=== PATIENT | female | born 1970 | race Hispanic/Latino ===

== ENCOUNTER 2022-03-03 06:34 | Outpatient (CLI) | payer BC ==
[2022-03-03] MEDS ORDERED: BENZOCAINE 20% TOP SPRAY 0.5 ML UNIT DOSE MM NR (07:00)
[2022-03-03 07:28] LABS: Basophils # (Auto) 0.1 K/mm3 (0.0-0.1); Basophils % (Auto) 0.9 % (0.0-1.8); Eosinophils # (Auto) 0.3 K/mm3 (0.0-0.4); Eosinophils % (Auto) 3.7 % (0.0-4.3); Hematocrit 40.4 % (30.3-42.9); Hemoglobin 12.9 gm/dl (10.1-14.3); Lymphocytes # (Auto) 1.2 K/mm3 (1.2-5.4); Lymphocytes % (Auto) 15.1 % (13.4-35.0); Mean Corpuscular HGB Conc 32 % (30-34); Mean Corpuscular Volume 93 fl (79-97); Monocytes # (Auto) 0.5 K/mm3 (0.0-0.8); Platelet Count 390 K/mm3 (140-440); Red Blood Count 4.36 M/mm3 (3.65-5.03); Red Cell Distribution Width 14.8 % (13.2-15.2)
[2022-03-03 07:36] LABS: INR 0.88 (0.87-1.13)
[2022-03-03 07:37] LABS: Partial Thromboplastin Time 32.4 Sec. (24.2-36.6)
--- NOTE | 2022-03-03 07:37 | Anesthesia Consultation ---
Anesthesia Consult and Med Hx Date of service: 03/03/22 - Airway Anesthetic Teeth Evaluation: Good ROM Head & Neck: Adequate Mental/Hyoid Distance: Adequate Mallampati Class: Class II Intubation Access Assessment: Probably Good - Pre-Operative Health Status ASA Pre-Surgery Classification: ASA3 Proposed Anesthetic Plan: MAC - Pulmonary Hx Asthma: Yes (uses inhaler on the daily basis) - Cardiovascular System Hx Hypertension: Yes - Central Nervous System Hx Back Pain: Yes - Endocrine Hx Renal Disease: Yes (kidney infarction) Hx Non-Insulin Dependent Diabetes: No (takes metformin for PCOD)
--- NOTE | 2022-03-03 07:38 | Anesthesia Day of Surgery ---
Anesthesia Day of Surgery - Day of Surgery Patient Examined: Yes Patient H&P Reviewed: Yes Patient is NPO: Yes Beta Blockers: Yes (took metoprolol last night)
[2022-03-03 07:41] LABS: Blood Urea Nitrogen 13 mg/dL (7-17); Hemolysis Index 4
[2022-03-03] MEDS ORDERED: propofoL 200 MG/20 ML VIAL IV ONE ×2 (07:41)
[2022-03-03 07:44] LABS: BUN/Creatinine Ratio 19
[2022-03-03] MEDS ORDERED: SODIUM CHLORIDE 0.9% 1000 ML 1,000 ML IV SCH (08:00)
--- NOTE | 2022-03-03 10:12 | Short Stay Summary ---
Short Stay Documentation Date of service: 03/03/22 - History H&P: obtained from office - Allergies and Medications Current Medications: Allergies amoxicillin [From Augmentin] Allergy (Verified 02/26/22 16:01) Vomiting clavulanic acid [From Augmentin] Allergy (Verified 02/26/22 16:01) Vomiting Sulfa (Sulfonamide Antibiotics) Allergy (Verified 02/26/22 16:01) Anaphylaxis Active Medications Benzocaine (Benzocaine 20% [place] 0.5 Ml Unit Dose) 3 spray MM PREOP NR Stop: 03/03/22 10:00 Last Admin: 03/03/22 08:44 Dose: 3 spray Sodium Chloride (Nacl 0.9% 1000 Ml) 1,000 mls @ 42 mls/hr IV DIRECT GABBIE Last Admin: 03/03/22 08:14 Dose: 42 mls/hr - Brief post op/procedure progress note Date of procedure: 03/03/22 Estimated blood loss: none - Hospital course Hospital course: Patient presents today for CRISTO. Patient tolerated procedure well and to be discharged home follow-up with primary exhibits manager - Disposition Condition at discharge: Good - Discharge Diagnoses (1) PAF (paroxysmal atrial fibrillation) Status: Acute (2) HTN (hypertension) Status: Acute Short Stay Discharge Plan Activity: advance as tolerated Diet: low fat, low cholesterol, low salt Follow up with: SALVADOR WHITFIELD MD [Primary Care Provider] - 7 Days QUOC BONE MD [Staff Physician] - 03/07/22 9:45 am (Patient has a follow-up appointment on 03/07/2022 at 9:45 AM at our [place] location) Forms: CRISTO Discharge Form
[2022-03-03 11:24] VITALS: BP 140/82
--- NOTE | 2022-03-04 08:28 | Electrocardiograph Report ---
[facility] Test Date: 2022-03-03 Test Time: 07:41:49 Pat Name: BRYN ONEILL Department: Room: Gender: F Rug Inspector: TRISH : 1970 Requested By: ZOILA FERRARA Order Number: [id number] Reading MD: Zoila Ferrara Measurements Intervals [place] Rate: 61 P: 49 UT: 142 QRS: 1 QRSD: 85 T: 20 QT: 419 QTc: 422 Interpretive Statements Sinus rhythm Supraventricular bigeminy No previous ECG available for comparison Electronically Signed On 03-04-2022 8:28:15 EDT by Zoila Ferrara
== END 2022-03-03 11:45 | disposition home or self-care (01) ==
LOC: CATHLABREC 06:34
PROVIDERS: ATTEND Internal Medicine
DX: R00.0 Tachycardia, unspecified (principal); J45.998 Other asthma; N28.0 Ischemia and infarction of kidney; I48.0 Paroxysmal atrial fibrillation; I10 Essential (primary) hypertension; E11.9 Type 2 diabetes mellitus without complications; Z82.5 Family history of asthma and other chronic lower respiratory diseases; Z79.899 Other long term (current) drug therapy; Z88.2 Allergy status to sulfonamides; Z88.8 Allergy status to other drugs, medicaments and biological substances; Z79.84 Long term (current) use of oral hypoglycemic drugs; Z90.49 Acquired absence of other specified parts of digestive tract; Z98.890 Other specified postprocedural states; Z82.49 Family history of ischemic heart disease and other diseases of the circulatory system
CPT/HCPCS: 36415; 80048; 85025; 85610; 85730; 93005; 93312; 93320; 93325; J2704; J7030; U0003

== ENCOUNTER 2022-03-28 06:39 | Day surgery (SDC) | payer BC ==
[~2022-03-28 06:39] MED LIST: SODIUM CHLORIDE 0.9% 750 ML ONE
[2022-03-28 07:16] LABS: Basophils % (Auto) 0.5 % (0.0-1.8); Eosinophils # (Auto) 0.3 K/mm3 (0.0-0.4); Hematocrit 38.1 % (30.3-42.9); Lymphocytes # (Auto) 2.1 K/mm3 (1.2-5.4); Lymphocytes % (Auto) 23.9 % (13.4-35.0); Mean Corpuscular HGB Conc 34 % (30-34); Mean Corpuscular Volume 90 fl (79-97); Monocytes # (Auto) 0.8 K/mm3 (0.0-0.8); Monocytes % (Auto) 9.8 % (0.0-7.3); Platelet Count 442 K/mm3 (140-440); Red Blood Count 4.24 M/mm3 (3.65-5.03); Red Cell Distribution Width 14.3 % (13.2-15.2)
[2022-03-28 07:26] LABS: INR 0.83 (0.87-1.13)
[2022-03-28 07:28] LABS: BUN/Creatinine Ratio 23; Blood Urea Nitrogen 18 mg/dL (7-17); Calcium 9.4 mg/dL (8.4-10.2); Hemolysis Index 3
[2022-03-28] MEDS ORDERED: VERAPAMIL 5 MG/2 ML INJ ONE (07:59)
[2022-03-28] MEDS ORDERED: HEPARIN/NS 5000 UNIT/500ML 1,000 ML IR ONE (07:59)
[2022-03-28] MEDS ORDERED: HEPARIN 10,000 UNITS/10 ML VIAL ONE (07:59)
[2022-03-28] MEDS ORDERED: ASPIRIN EC 325 MG TAB PO NR (08:01)
[2022-03-28] MEDS: SODIUM CHLORIDE 0.9% 500 ML 500 ML IV SCH ×2 (08:06→09:19)
[2022-03-28] MEDS ORDERED: NITROGLYCERIN SYRINGE 3 ML ONE (08:53)
[2022-03-28] MEDS: LIDOCAINE (1%) 10 MG/1 ML VIAL 20 ML MDV ONE ×2 (08:54→09:20)
[2022-03-28] MEDS: fentaNYL 100 MCG/2 ML INJ ONE ×2 (08:54→09:17)
[2022-03-28] MEDS: MIDAZOLAM 2 MG/2 ML INJ ONE ×2 (08:54→09:17)
[2022-03-28] MEDS ORDERED: ASPIRIN 81 MG TAB CHEW PO SCH (10:00)
--- NOTE | 2022-03-28 10:19 | Cardiac Catherization Report ---
DATE OF PROCEDURE: 03/28/2022 REFERRING PHYSICIAN: Roberto Raza MD INDICATIONS FOR PROCEDURE: The patient is a very pleasant 51-year-old female with multiple risk factors, recurrent chest pain, abnormal treadmill, referred for left heart catheterization. She also has a history of discrete renal infarction. I was contacted by her neon sign servicer, Dr. Velásquez who requested bilateral renal angiography given this history. Risks, benefits and alternatives discussed prior to obtaining informed consent. PROCEDURE IN DETAIL: The patient was brought to the medical lab director in a postabsorptive state, prepped and draped in sterile fashion. Andres's test in right hand is normal. 2 mL of 2% lidocaine used to anesthetize the right wrist. A standard 6-Faroese hydrophilic sheath used to cannulate the right radial artery via modified Seldinger technique. All exchanges performed to exchange a J-tip guidewire. JL3.5 catheter was used to engage the left main. No dampening or ventricularization. Cineangiography performed in multiple projections. JR4 catheter used to cross the aortic valve under fluoroscopic guidance. Left ventriculography performed 30-degree OCCITAN projections via hand injections, catheter flushed. Manual pullback performed with continuous pressure monitoring. Catheter used to engage the right coronary. No dampening or ventricularization. Cineangiography performed in all projections. Next, we used a long JR4 catheter to place in the descending aorta. Selective third order bilateral renal angiography was performed. Next, the catheter was removed from the body over wire, sheath removed. Manual pressure used to achieve hemostasis. No immediate complications. I directly supervised the administration of fentanyl and Versed for moderate sedation from 9:00 a.m. to 9:40 a.m. No immediate complications identified. DATA: Aortic pressure is 150/90. LV pressure is 150, LVEDP of 10 mmHg. Left ventriculography reveals normal systolic performance, estimated ejection fraction 55-60%. No evidence of aortic stenosis. CORONARY ANATOMY: This is a strongly left dominant system. Right coronary small diminutive without disease. The left main is short, large left circumflex with a left PDA is free of significant disease. LAD is a moderate-sized vessel, courses anterior intraventricular groove, wraps around the apex. No significant disease in the LAD or diagonal system. Bilateral renal arteries are free of significant disease. CONCLUSIONS: 1. No angiographic evidence of significant epicardial coronary artery disease in this left dominant system. 2. Normal left ventricular systolic performance, estimated ejection fraction of 55-60%. 3. No evidence of aortic stenosis. 4. Normal bilateral renal arteries. The patient is clinically stable, chest pain free. The etiology of her chest pain is unclear, consideration of microvascular angina should be made, we will start Ranexa empirically. If she does not respond to Ranexa, it is unlikely that her chest pain is microvascular. She has been electrically stable throughout the case. We will have her follow up with Dr. Raza in the office. Also, follow up with Dr. Velásquez. Results of procedure explained to the patient and her . All questions were addressed. TID: [id number] RECEIPT: [id number] PAOLO
[2022-03-28] MEDS ORDERED: HYDROcodone/ACETAMINOPHEN 5-325 MG TAB PO PRN (11:39)
--- NOTE | 2022-03-28 11:53 | Short Stay Summary ---
Short Stay Documentation Date of service: 03/28/22 - History H&P: obtained from office - Allergies and Medications Current Medications: Allergies amoxicillin [From Augmentin] Allergy (Verified 02/26/22 16:01) Vomiting clavulanic acid [From Augmentin] Allergy (Verified 02/26/22 16:01) Vomiting Sulfa (Sulfonamide Antibiotics) Allergy (Verified 02/26/22 16:01) Anaphylaxis Home Medications Medication Instructions Recorded Confirmed Last Taken Type Apixaban [Eliquis] 5 mg PO BID 03/03/22 03/28/22 03/25/22 History 2 tabs Fluticasone/Umeclidin/Vilanter 1 puff INHALATION DAILY 03/03/22 03/28/22 03/02/22 History [Trelejames Ellipta 200-62.5-25] 1 puff Meclizine [Antivert] 25 mg PO PRN 03/03/22 03/28/22 02/05/22 History 25 mg Metformin HCl [metFORMIN ER 500 mg PO DAILY 03/03/22 03/28/22 03/27/22 History Osmotic] 1 tab Metoprolol [Lopressor TAB] 25 mg PO BID 03/03/22 03/28/22 03/27/22 History 2 tabs Omeprazole 20 mg PO DAILY 03/03/22 03/28/22 03/27/22 History 1 tab Zileuton [Zyflo] 600 mg PO BID 03/03/22 03/28/22 03/27/22 History 2 tabs Ascorbic Acid [Vitamin C with Sherlyn 1,000 mg PO DAILY 03/28/22 03/28/22 03/27/22 History Hips] 1 tab Cetirizine HCl [Allergy] 10 mg PO PRN 03/28/22 03/28/22 Unknown History Levalbuterol [Xopenex] 0.63 mg IH PRN 03/28/22 03/28/22 10/22/21 History 1 puff Melatonin [Melatonin 3MG TAB] 3 mg PO PRN 03/28/22 03/28/22 Unknown History Ranolazine ER [Ranexa ER] 500 mg PO BID 30 Days #60 03/28/22 Unknown Rx tab.er.12h Vitamin K2 100 mcg PO DAILY 03/28/22 03/28/22 03/27/22 History 1 tab Active Medications Hydrocodone Bitart/Acetaminophen (Hydrocodone/Acetaminophen 5-325 Mg Tab) 1 each PO Q4H PRN PRN Reason: Pain, Moderate (4-6) Stop: 03/28/22 20:00 Sodium Chloride (Nacl 0.9% 500 Ml) 500 mls @ 50 mls/hr IV DIRECT GABBIE Stop: 03/28/22 16:59 Last Admin: 03/28/22 09:19 Dose: 50 mls/hr Tramadol HCl (Tramadol 50 Mg Tab) 50 mg PO Q4H PRN PRN Reason: Pain, Mild (1-3) - Physical exam Integumentary: other (Dressing clean dry and intact with no signs of bleeding or hematoma) - Brief post op/procedure progress note Date of procedure: 03/28/22 Pre-op diagnosis: chest pain Post-op diagnosis: other (Normal coronaries) Estimated blood loss: minimal - Hospital course Hospital course: Patient presents today for cardiac cath. Patient found to have normal coronaries. Patient tolerated procedure well with no complications. Patient to be discharged home with prescription with Ranexa and follow-up in the office as an outpatient. Plan of care discussed with patient who verbalized understanding and agreement - Disposition Condition at discharge: Good Disposition: 01 HOME / SELF CARE / HOMELESS Short Stay Discharge Plan Activity: advance as tolerated Diet: low fat, low cholesterol, low salt Wound: keep clean and dry, per your surgeon's advice Follow up with: SALVADOR WHITFIELD MD [Primary Care Provider] - 7 Days QUOC BONE MD [Staff Physician] - 7 Days (Follow-up with Dr. Bone 04/15/2022 at 2:45 PM in our [place] location phone #[phone]) Forms: CardCath PCI D/C Instructions Prescriptions: Ranolazine ER [Ranexa ER] 500 mg PO BID 30 Days #60 tab.er.12h
[2022-03-28] MEDS ORDERED: traMADol 50 MG TAB PO PRN (12:00)
[2022-03-28 12:17] VITALS: BP 144/77
--- NOTE | 2022-03-28 14:26 | Electrocardiograph Report ---
[facility] Test Date: 2022-03-28 Test Time: 07:49:02 Pat Name: BRYN ONEILL Department: Room: Gender: F Gate Services Supervisor: TRISH : 1970 Requested By: KACI HU Order Number: [id number] Reading MD: Chrystal Araujo Measurements Intervals [place] Rate: 63 P: 49 DC: 150 QRS: 0 QRSD: 91 T: 28 QT: 411 QTc: 421 Interpretive Statements Sinus rhythm Compared to ECG 03/03/2022 07:41:49 Atrial premature complex(es) no longer present Electronically Signed On 03-28-2022 14:26:22 EDT by Chrystal Araujo
== END 2022-03-28 12:59 | disposition home or self-care (01) ==
LOC: CATHLABREC 06:39
PROVIDERS: ATTEND Internal Medicine
DX: R07.89 Other chest pain (principal); R94.39 Abnormal result of other cardiovascular function study; R00.2 Palpitations; E11.9 Type 2 diabetes mellitus without complications; I10 Essential (primary) hypertension; I48.91 Unspecified atrial fibrillation; J45.909 Unspecified asthma, uncomplicated; Z88.6 Allergy status to analgesic agent; Z88.2 Allergy status to sulfonamides; Z88.8 Allergy status to other drugs, medicaments and biological substances; Z79.899 Other long term (current) drug therapy; Z79.84 Long term (current) use of oral hypoglycemic drugs; Z90.49 Acquired absence of other specified parts of digestive tract; Z98.890 Other specified postprocedural states; Z82.5 Family history of asthma and other chronic lower respiratory diseases; Z83.3 Family history of diabetes mellitus; Z82.49 Family history of ischemic heart disease and other diseases of the circulatory system
CPT/HCPCS: 36252; 36415; 80048; 85025; 85610; 93005; 93458; 99156; 99157; C1769; C1894; J1644; J1815; J2250; J3010; J7040; Q9967